=== PATIENT | male | born 2000 | race African-American/Black ===

== ENCOUNTER 2019-12-28 11:08 | Emergency (ER) | payer BC ==
[2019-12-28] MEDS ORDERED: Ketorolac Tromethamine 30 MG/ML VIAL ONE (11:52)
[2019-12-28] MEDS ORDERED: Ondansetron PF 4 MG/2 ML Vial ONE (11:52)
[2019-12-28 12:33] LABS: #Basophils 0.1 thou/uL (0.0-0.2); #Lymphocytes 1.1 thou/uL (1.20-3.40); #Monocytes 0.4 thou/uL (0.11-0.59); #Neutrophils 11.3 thou/uL (1.40-6.50); %Basophils 0.9 % (0.0-1.0); %Eosinophils 0.2 % (0.0-10.0); %Lymphocytes 8.6 % (28.0-48.0); %Monocytes 2.9 % (0.0-4.0); %Neutrophils 87.5 % (31.0-61.0); Hemoglobin 16.1 g/dL (14.0-18.0); Mean Corpuscular Hemoglobin 29.2 pg (25.0-35.0); Mean Corpuscular Volume 88.7 fL (78.0-98.0); Mean Platelet Volume 7.3 fL (7.4-10.4); Platelet Count 178 thou/uL (130-400); RBC Distribution Width 12.1 % (11.5-14.5); Red Blood Cell (RBC) Count 5.52 mill/uL (4.00-5.20)
[2019-12-28 12:44] LABS: ALT (SGPT) 9 U/L (8-55); AST (SGOT) 11 U/L (5-34); Albumin 4.2 g/dL (3.5-5.0); Alkaline Phosphatase 55 U/L (50-130); Anion Gap 17 mmol/L (10-20); BUN (Urea Nitrogen) 9 mg/dL (8.9-20.6); Bilirubin, Total 0.6 mg/dL (0.2-1.2); CK (CPK) 83 U/L (30-200); Calc. Creatinine Clearance 0 mL/min (70-130); Calcium 9.4 mg/dL (7.8-10.44); Carbon Dioxide 20 mmol/L (22-29); Chloride 105 mmol/L (98-107); Estimated GFR-MDRD Greater than 90; Globulin 2.6 g/dL (2.4-3.5); Glucose 90 mg/dL (70-105); Lipase 15 U/L (8-78); Potassium 3.6 mmol/L (3.5-5.1); Protein, Total 6.8 g/dL (6.0-8.3); Sodium 138 mmol/L (136-145)
[2019-12-28] MEDS ORDERED: Morphine 4 MG/ML VIAL ONE (13:43)
--- NOTE | 2019-12-28 13:59 | CT ---
CT ABDOMEN WITH CONTRAST CT PELVIS WITH CONTRAST: DATE: 12/28/2019 HISTORY: 19-year-old male with left-sided abdominal pain COMPARISON: None TECHNIQUE: IV injection of iodinated contrast media: administered. Oral contrast media:Not administered FINDINGS: Lack of visceral fat, typical for this age group, limits the evaluation. At the caudal aspect of the junction between the anterior and posterior penis, there is a approximate ly 2 x 1.5 x 3 cm low-attenuation, cystic lesion No obvious major pathology is identified involving the pancreas, abdominal aorta, left kidney, adrena ls, liver, spleen, or urinary bladder. There is mild dilation of the right renal collecting system, but no abnormality of the right nephrogr am. There is a small amount of free fluid in the right lower quadrant, abutting the cecum at the right pe lvic inlet. The appendix is approximately 5 to 6 mm in caliber. There is questionable mild pericolonic fat strand ing following the descending colon. There is minimal fat stranding diffusely in the pelvis consistent with small amount of free fluid. This includes perirectal circumferential minimal free flu id. Lung bases are clear. No pneumoperitoneum. No small bowel dilation. IMPRESSION: 1. Small amount of free fluid in the right lower quadrant around the cecum. 2. very small amount of edema fluid surrounding the entire descending colon. 3. Diffuse edema fluid throughout the pelvic cavity. 4. The source of all of the above mentioned free fluid and edema, is not evident. 5. Cystic lesion at the junction between the anterior and posterior penis. Differential diagnosis is Cowper's duct syringocele, periurethral cyst, and abscess.
== END 2019-12-28 15:22 | disposition home or self-care (01) ==
LOC: ERS 11:08
DX: R10.9 Unspecified abdominal pain (principal)
CPT/HCPCS: 36415; 74177; 80053; 82550; 83690; 85025; 96361; 96374; 96375; J1885; J2270; J2405